=== PATIENT | male | born 1945 | race Caucasian/White ===

== ENCOUNTER 2019-01-19 03:56 | Inpatient (IN) | payer MEDICARE, OTHER ==
[~2019-01-19] VITALS: Ht 182.9 cm; Wt 102.5 kg
[~2019-01-19 03:56] MED LIST: ASPI325T17 PO; CARV12.52 PO; HYDR25TA6 PO; LISI-170 PO; OMEG1CAP23 PO
--- NOTE | 2019-01-19 04:00 | NUR ---
assessment made. seen by ERP with orders.
[2019-01-19] MEDS ORDERED: NITROGLYCERIN/D5W PMX 250 ML ONE (04:01)
[2019-01-19] MEDS: NITROGLYCERIN/D5W PMX 250 ML IV SCH ×3 (04:05→10:23)
[2019-01-19 04:19] LABS: BASOPHILS # (AUTO) 0.04 x10^3/uL (0-0.1); BASOPHILS % (AUTO) 0 % (0-1); EOSINOPHILS # (AUTO) 0.16 x10^3/uL (0-0.4); EOSINOPHILS % (AUTO) 1 % (1-7); LYMPHOCYTES # (AUTO) 2.33 x10^3/uL (1-3.4); LYMPHOCYTES % (AUTO) 21 % (22-44); MD NO; MEAN CORPUSCULAR HEMOGLOBIN 28.1 pg (27.5-34.5); MEAN CORPUSCULAR HGB CONC 33.2 g/dL (33.2-36.2); MEAN CORPUSCULAR VOLUME 84.5 fL (81-97); MONOCYTES # (AUTO) 0.48 x10^3/uL (0.2-0.8); MONOCYTES % (AUTO) 4 % (2-9); NEUTROPHILS # (AUTO) 7.96 x10^3/uL (1.8-6.8); NEUTROPHILS % (AUTO) 73 % (42-75); PLATELET COUNT 222 x10^3/uL (130-400); RED BLOOD COUNT 5.49 x10^6/uL (4.38-5.82); RED CELL DISTRIBUTION WIDTH 15.6 % (9.4-14.8)
[2019-01-19] MEDS ORDERED: ASPIRIN 325 MG TABLET ONE (04:20)
[2019-01-19] MEDS ORDERED: ASPIRIN 81 MG TABLET CHEW ONE (04:21)
--- NOTE | 2019-01-19 04:28 | NUR ---
pt denied headache or nausea family at bed side
--- NOTE | 2019-01-19 04:28 | NUR ---
ntg gtt up to 100mcg/min
[2019-01-19 04:29] LABS: PROTHROMBIN TIME 10.5 Seconds (9.6-11.5)
[2019-01-19] MEDS ORDERED: SODIUM CHLORIDE FLUSH 10ML SYR IVF ONE (04:30)
[2019-01-19] MEDS ORDERED: ASPIRIN 81 MG TABLET CHEW PO ONE (04:30)
[2019-01-19 04:31] LABS: ALBUMIN 3.8 g/dL (3.4-5.0); ANION GAP 6 mmol/L (5-15); CHLORIDE 110 mmol/L (98-107)
[2019-01-19 04:35] LABS: ALANINE AMINOTRANSFERASE 44 U/L (12-78); ALKALINE PHOSPHATASE 144 U/L (45-117); CREATININE 0.99 mg/dL (0.7-1.3); TOTAL PROTEIN 6.9 g/dL (6.4-8.2); TROPONIN I < 0.015 ng/mL (0.000-0.045)
[2019-01-19] MEDS ORDERED: FUROSEMIDE 40 MG/4 ML IV ONE (05:00)
--- NOTE | 2019-01-19 05:07 | NUR ---
daughter January [phone]
[2019-01-19] MEDS ORDERED: FUROSEMIDE 40 MG/4 ML ONE (05:12)
--- NOTE | 2019-01-19 06:17 | NUR ---
50MCG OF NTG GTT D/T BP WAS STABILIZED
--- NOTE | 2019-01-19 06:31 | NUR ---
GIVEN REPORT TO REJI MASON AFTER CALLED DR TILLMAN ABOUT ICU ORDER OK'D TRANSFER PT UP CCU PER DR TILLMAN
[2019-01-19] MEDS ORDERED: ENALAPRILAT 1.25 MG/ML, 2ML IVPush PRN (12:00)
[2019-01-19] MEDS ORDERED: ACETAMINOPHEN 325 MG TABLET PO PRN (12:00)
[2019-01-19] MEDS ORDERED: BISACODYL 10 MG SUPP PR PRN (12:00)
[2019-01-19] MEDS ORDERED: POLYETHYLENE GLYCOL 17 GM PACKET PO PRN (12:00)
[2019-01-19] MEDS ORDERED: LABETALOL 5MG/ML, 20ML IVPush PRN (12:00)
[2019-01-19] MEDS ORDERED: DOCUSATE 100 MG CAPSULE PO PRN (12:00)
[2019-01-19] MEDS ORDERED: ONDANSETRON 2MG/ML, 2ML IVPush PRN (12:00)
[2019-01-19] MEDS: ENOXAPARIN 40 MG/0.4 ML SQ SCH (13:29)
[2019-01-19] MEDS: CARVEDILOL 12.5 MG TABLET PO SCH ×2 (13:30→21:26)
[2019-01-19] MEDS: HYDROCHLOROTHIAZIDE 25 MG TABLET PO SCH (13:30)
[2019-01-19] MEDS: LISINOPRIL 20 MG TABLET PO SCH (13:30)
[2019-01-19] MEDS ORDERED: ALBUTEROL SULFATE 2.5 MG/3 ML NPPB PRN (15:00)
[2019-01-19 19:43] LABS: TROPONIN I 0.125 ng/mL (0.000-0.045)
[2019-01-19] MEDS ORDERED: OMNIPAQUE 350 MG/ML, 100ML BOTTLE ONE (21:18)
[2019-01-20 04:00] VITALS: BP 126/72
[2019-01-20 04:21] LABS: BASOPHILS # (AUTO) 0.09 x10^3/uL (0-0.1); BASOPHILS % (AUTO) 1 % (0-1); EOSINOPHILS # (AUTO) 0.11 x10^3/uL (0-0.4); EOSINOPHILS % (AUTO) 1 % (1-7); LYMPHOCYTES # (AUTO) 1.95 x10^3/uL (1-3.4); LYMPHOCYTES % (AUTO) 23 % (22-44); MD NO; MEAN CORPUSCULAR HEMOGLOBIN 27.9 pg (27.5-34.5); MEAN CORPUSCULAR VOLUME 84.4 fL (81-97); MEAN PLATELET VOLUME 8.3 fL (7.4-10.4); MONOCYTES # (AUTO) 0.71 x10^3/uL (0.2-0.8); MONOCYTES % (AUTO) 8 % (2-9); NEUTROPHILS # (AUTO) 5.66 x10^3/uL (1.8-6.8); NEUTROPHILS % (AUTO) 67 % (42-75); PLATELET COUNT 175 x10^3/uL (130-400); RED BLOOD COUNT 5.44 x10^6/uL (4.38-5.82); RED CELL DISTRIBUTION WIDTH 15.3 % (9.4-14.8)
[2019-01-20 04:25] LABS: ALBUMIN 3.7 g/dL (3.4-5.0); ANION GAP 5 mmol/L (5-15); CALCIUM 9.4 mg/dL (8.5-10.1); CHLORIDE 105 mmol/L (98-107)
[2019-01-20 04:33] LABS: ALANINE AMINOTRANSFERASE 32 U/L (12-78); ALKALINE PHOSPHATASE 120 U/L (45-117); BILIRUBIN,TOTAL 1.4 mg/dL (0.2-1.0); CHOL/HDL RATIO 3.5; CHOLESTEROL, TOTAL 187 mg/dL (140-239); CREATININE 0.83 mg/dL (0.7-1.3); HDL CHOL % 29 % (26-37); HDL CHOLESTEROL (DIRECT) 54 mg/dL (40-60); LDL CHOLESTEROL,CALCULATED 115 mg/dL (54-169); LDL/HDL RATIO 2.1 (0.5-3.0); TOTAL PROTEIN 7.1 g/dL (6.4-8.2); TRIGLYCERIDES 92 mg/dL (50-200); VLDL CHOLESTEROL 18 mg/dL (0-25)
[2019-01-20] MEDS: LISINOPRIL 20 MG TABLET PO SCH (07:33)
[2019-01-20] MEDS: CARVEDILOL 12.5 MG TABLET PO SCH (07:33)
[2019-01-20] MEDS: ENOXAPARIN 40 MG/0.4 ML SQ SCH (07:34)
[2019-01-20] MEDS: HYDROCHLOROTHIAZIDE 25 MG TABLET PO SCH (07:34)
[2019-01-20 08:00] VITALS: BP 148/82
[2019-01-20] MEDS ORDERED: SENNA/DOCUSATE TABLET PO SCH (09:00)
[2019-01-20] MEDS ORDERED: ASPIRIN 325 MG TABLET PO SCH (09:00)
== END 2019-01-20 11:05 | disposition home or self-care (01) | DRG 291 ==
LOC: ED 05:39 → EDIP 05:40 → CCU 06:37 → DCLOUNGE 01-20 10:55
PROVIDERS: ADMIT Family Medicine; ATTEND Family Medicine
DX: I11.0 Hypertensive heart disease with heart failure (principal); J96.01 Acute respiratory failure with hypoxia; I50.9 Heart failure, unspecified; E78.00 Pure hypercholesterolemia, unspecified; I25.10 Atherosclerotic heart disease of native coronary artery without angina pectoris; I25.2 Old myocardial infarction; I42.9 Cardiomyopathy, unspecified; J44.9 Chronic obstructive pulmonary disease, unspecified; Z53.20 Procedure and treatment not carried out because of patient's decision for unspecified reasons; Z95.1 Presence of aortocoronary bypass graft; I25.5 Ischemic cardiomyopathy; Z79.82 Long term (current) use of aspirin; Z79.899 Other long term (current) drug therapy; Z82.49 Family history of ischemic heart disease and other diseases of the circulatory system; E16.2 Hypoglycemia, unspecified; Z66 Do not resuscitate
CPT/HCPCS: 36415; 71045; 71275; 80053; 80061; 83735; 83880; 84100; 84443; 84484; 85025; 85610; 85730; 87081; 93005; G0378; J1650; J1940; Q9967